=== PATIENT | female | born 1955 | race Caucasian/White ===

== ENCOUNTER 2018-03-20 10:46 | Emergency (ER) | payer BC, OTHER ==
[2018-03-20] MEDS ORDERED: Sodium Chloride 0.9% 1,000 ML IV ONE (10:56)
--- NOTE | 2018-03-20 11:06 | EDM.PDOC ---
ED HPI GENERAL MEDICAL PROBLEM - General Chief Complaint: General Stated Complaint: DIZZY,LIGHT HEADED Time Seen by Provider: 03/20/18 10:46 Source of Information: Reports: Patient History Limitations: Reports: No Limitations - History of Present Illness INITIAL COMMENTS - FREE TEXT/NARRATIVE: 62 YO WF presents to ER by EMS after feeling lightheaded and diaphoretic at work today. Pt states she felt fine this am when she woke and went to work. Pt states she had breakfast without much caffeine consumption and while doing some light work she began to feel "clammy" and lightheaded. Pt denies syncope. Pt states she sat down and rested but continued to feel lightheaded prompting EMS call and transfer to ER. Pt denies any chest pain, shortness of breath, nausea/ vomiting. Pt states she had a recent illness 1 week ago with URI symptoms but states her symptoms resolved 3 days ago and has been feeling fine since. Pt reports 1PPD smoker x 40 years. Pt currently feels "fine", without complaints. Onset: Sudden Onset Date: 03/20/18 Onset Time: 10:00 Location: Reports: Generalized Severity: Mild Improves with: Reports: Rest Worsens with: Reports: Movement Associated Symptoms: Reports: Diaphoresis, Malaise, Weakness. Denies: Confusion , Chest Pain, Cough, cough w sputum, Fever/Chills, Headaches, Loss of Appetite, Nausea/Vomiting, Rash, Seizure, Shortness of Breath, Syncope - Related Data Allergies Allergy/AdvReac Type Severity Reaction Status Date / Time aspirin Allergy Blisters Verified 03/20/18 11:11 morphine Allergy Hypotension Verified 03/20/18 11:11 Home Meds: Home Meds Cephalexin [Keflex] 500 mg PO Q6HR #28 capsule 03/20/18 [Rx] Lisinopril/Hydrochlorothiazide [Lisinopril-Hctz 20-25 mg Tab] 1 tab PO DAILY [History] atorvaSTATin Calcium [Atorvastatin Calcium] 20 mg PO DAILY 03/20/18 [History] buPROPion [Wellbutrin SR] 150 mg PO BID 03/20/18 [History] ED ROS GENERAL - Review of Systems Review Of Systems: See Below Constitutional: Reports: Diaphoresis HEENT: Reports: No Symptoms Respiratory: Reports: No Symptoms Cardiovascular: Reports: Lightheadedness. Denies: Chest Pain, Palpitations, Syncope Endocrine: Reports: No Symptoms GI/Abdominal: Reports: No Symptoms : Reports: No Symptoms Musculoskeletal: Reports: No Symptoms Skin: Reports: No Symptoms Neurological: Reports: Dizziness. Denies: Confusion, Headache, Numbness, Seizure, Syncope, Tingling, Trouble Speaking, Difficulty Walking, Change in Speech, Gait Disturbance Psychiatric: Reports: No Symptoms Hematologic/Lymphatic: Reports: No Symptoms Immunologic: Reports: No Symptoms ED EXAM, DIZZINESS - Physical Exam Exam: See Below Exam Limited By: No Limitations General Appearance: Alert, WD/WN, No Apparent Distress Eye Exam: Bilateral Eye: EOMI, PERRL Ears: Normal External Exam, Normal Canal, Hearing Grossly Normal, Normal TMs Nose: Normal Inspection, Normal Mucosa, No Blood Throat/Mouth: Normal Inspection, Normal Lips, Normal Teeth, Normal Gums, Normal Oropharynx, Normal Voice, No Airway Compromise Head Exam: Atraumatic, Normocephalic Neck: Normal Inspection, Supple, Non-Tender, Full Range of Motion Respiratory/Chest: No Respiratory Distress, Lungs Clear, Normal Breath Sounds, No Accessory Muscle Use, Chest Non-Tender Cardiovascular: Normal Peripheral Pulses, Regular Rate, Rhythm, No Edema, No Gallop, No JVD, No Murmur, No Rub GI/Abdominal: Normal Bowel Sounds, Soft, Non-Tender, No Organomegaly, No Distention, No Abnormal Bruit, No Mass Neurological: Alert, Normal Mood/Affect, Normal Dorsiflexion, CN II-XII Intact, Normal Plantar Flexion, Normal Gait, Normal Reflexes, No Motor/Sensory Deficits , Oriented x 3 Back Exam: Normal Inspection, Full Range of Motion, NT Extremities: Normal Inspection, Normal Range of Motion, Non-Tender, No Pedal Edema, Normal Capillary Refill Psychiatric: Normal Affect, Normal Mood Skin Exam: Warm, Dry, Intact, Normal Color, No Rash EKG INTERPRETATION EKG Date: 03/20/18 Time: 11:13 Rhythm: NSR Rate (Beats/Min): 71 [place]: Normal P-Wave: Present QRS: Normal ST-T: Normal QT: Normal Comparison: NA - No Prior EKG Course - Vital Signs Last Recorded V/S: Last Vital Signs Temp 36.0 C 03/20/18 11:32 Pulse 74 03/20/18 11:32 Resp 18 03/20/18 11:32 BP 95/44 L 03/20/18 11:32 Pulse Ox 96 03/20/18 11:32 Orthostatic Blood Pressure [ 97/56 Standing] Orthostatic Blood Pressure [ 104/69 Sitting] Orthostatic Blood Pressure [ 114/63 Supine] - Orders/Labs/Meds Orders: Active Orders 24 hr Category Date Time Status Cardiac Monitoring [RC] . DIRECTED Care 03/20/18 10:54 Ordered EKG Documentation Completion [RC] ASDIRECTED Care 03/20/18 10:55 Ordered Orthostatic Vital Signs [RC] ASDIRECTED Care 03/20/18 10:54 Ordered Chest 2V [CR] Stat Exams 03/20/18 10:54 Ordered URINALYSIS W/MICROSCOPIC [UA W/MICROSCOPIC] [URIN] Stat Lab 03/20/18 10:54 Ordered EKG 12 Lead [EK] Routine Ther 03/20/18 10:54 Ordered Labs: Laboratory Tests 03/20/18 03/20/18 03/20/18 Range/Units 11:05 11:05 11:25 WBC 4.7 L (5.0-10.0) 10^3/uL RBC 3.60 L (3.80-5.50) 10^6/uL Hgb 12.6 (12.0-16.0) g/dL Hct 38.3 (37.0-47.0) % MCV 106.5 H (82.0-92.0) fL MCH 34.9 H (27.0-31.0) pg MCHC 32.8 (32.0-36.0) g/dL RDW 14.9 H (11.5-14.5) % Plt Count 201 (150-300) 10^3/uL MPV 7.7 (7.4-10.4) fL Neut % (Auto) 67.3 (50.0-70.0) % Lymph % (Auto) 23.5 (20.0-40.0) % [place] % (Auto) 4.7 (2.0-8.0) % Eos % (Auto) 3.9 H (1.0-3.0) % Baso % (Auto) 0.6 (0.0-1.0) % Neut # (Auto) 3.2 (2.5-7.0) 10^3/uL Lymph # (Auto) 1.1 (1.0-4.0) 10^3/uL [place] # (Auto) 0.2 (0.1-0.8) 10^3/uL Eos # (Auto) 0.2 (0.1-0.3) 10^3/uL Baso # (Auto) 0.0 (0.0-0.1) 10^3/uL Sodium 139 (136-145) mmol/L Potassium 4.2 (3.3-5.3) mmol/L Chloride 100 (98-115) mmol/L Carbon Dioxide 25.9 (21.0-32.0) mmol/L BUN 27 H (6-25) mg/dL Creatinine 1.59 H (0.51-1.17) mg/dL Est Cr Clr Drug Dosing 33.01 mL/min Estimated GFR (MDRD) 33 mL/min Glucose 112 H (70-110) mg/dL Calcium 9.0 (8.7-10.3) mg/dL Total Bilirubin 0.5 (0.2-1.0) mg/dL AST 32 (15-37) U/L ALT 29 (12-78) U/L Alkaline Phosphatase 120 H (46-116) IU/L Creatine Kinase 58 (26-276) U/L CK-MB (CK-2) 0.60 (0.00-4.30) ng/mL Troponin I 0.05 (0.00-0.070) ng/mL Total Protein 7.2 (6.4-8.2) g/dL Albumin 3.58 (3.00-4.80) g/dL Specimen Type Urinvoid Urine Color Yellow (YELLOW) Urine Appearance Slightly cloudy H (CLEAR) Urine pH 6.0 (5.0-9.0) Ur Specific [place] 1.020 (1.005-1.030) Urine Protein Negative (NEGATIVE) mg/dL Urine Glucose (UA) Negative (NEGATIVE) mg/dL Urine Ketones 15 H (NEGATIVE) mg/dL Urine Occult Blood Negative (NEGATIVE) Urine Nitrite Negative (NEGATIVE) Urine Bilirubin Small H (NEGATIVE) Urine Urobilinogen 0.2 (0.2-1.0) E.U./dL Ur Leukocyte Esterase Negative (NEGATIVE) Urine RBC 0-5 /HPF Urine WBC 0-5 /HPF Ur Epithelial Cells Many H /LPF Urine Bacteria Moderate H (NONE TO FEW) /HPF Meds: Medications Discontinued Medications Generic Name Dose Route Start Last Admin Trade Name Frank PRN Reason Stop Dose Admin Sodium Chloride 1,000 mls @ 999 mls/hr 03/20/18 10:56 03/20/18 11:28 Normal Saline IV 03/20/18 11:56 999 mls/hr .BOLUS ONE Administration - Radiology Interpretation Free Text/Narrative:: CXR- NAD - Re-Assessments/Exams Free Text/Narrative Re-Assessment/Exam: 03/20/18 11:26 orthostatic BP- positive for hypotension Departure - Departure Time of Disposition: 12:03 Disposition: Home, Self-Care 01 Condition: Good Clinical Impression: UTI, Urinary tract infectious disease, Orthostatic dizziness, Renal insufficiency, mild - Discharge Information Prescriptions: Cephalexin [Keflex] 500 mg PO Q6HR #28 capsule Instructions: Urinary Tract Infection, Adult, Orthostatic Hypotension, Chronic Kidney Disease, Adult, [id number] Referrals: PCP,Not In Area [Primary Care Provider] - Forms: ED Department Discharge - My Orders Last 24 Hours: My Active Orders 03/20/18 10:54 Cardiac Monitoring [RC] . DIRECTED Orthostatic Vital Signs [RC] ASDIRECTED Chest 2V [CR] Stat URINALYSIS W/MICROSCOPIC [UA W/MICROSCOPIC] [URIN] Stat EKG 12 Lead [EK] Routine 03/20/18 10:55 EKG Documentation Completion [RC] ASDIRECTED - Assessment/Plan Last 24 Hours: My Active Orders 03/20/18 10:54 Cardiac Monitoring [RC] . DIRECTED Orthostatic Vital Signs [RC] ASDIRECTED Chest 2V [CR] Stat URINALYSIS W/MICROSCOPIC [UA W/MICROSCOPIC] [URIN] Stat EKG 12 Lead [EK] Routine 03/20/18 10:55 EKG Documentation Completion [RC] ASDIRECTED Assessment:: 1. Dizziness 2. Orthostatic hypotension 3. Urinary tract infection 4. mild renal insufficiency Plan: 1. Discharge home 2. keflex 500mg PO Q6 x 7 days 3. increase PO fluids 4. follow up with PCP regarding renal insufficiency 5. return to ER for worsening symptoms 6. work release for 03/20/2018
== END 2018-03-20 12:35 | disposition home or self-care (01) ==
LOC: KA.ED 10:46
DX: I95.1 Orthostatic hypotension (principal); N39.0 Urinary tract infection, site not specified; N28.9 Disorder of kidney and ureter, unspecified; Z88.6 Allergy status to analgesic agent; Z88.5 Allergy status to narcotic agent; Z79.899 Other long term (current) drug therapy
CPT/HCPCS: 36415; 71046; 80053; 81001; 82550; 82553; 84484; 85025; 93005; 96360; 99285; J7030

== ENCOUNTER 2019-01-01 11:49 | Emergency (ER) | payer BC, OTHER ==
--- NOTE | 2019-01-01 12:13 | EDM.PDOC ---
ED HPI GENERAL MEDICAL PROBLEM - General Chief Complaint: General Stated Complaint: DIZZINESS Time Seen by Provider: 01/01/19 11:57 Source of Information: Reports: Patient History Limitations: Reports: No Limitations - History of Present Illness INITIAL COMMENTS - FREE TEXT/NARRATIVE: Patient is a 63-year-old female who presents to the emergency department with a complaint of lightheadedness. Patient was working at [employer] this morning and at approximately 10 a.m. bent over to pick something up. Upon returning to a standing position. Patient felt lightheaded and needed to hold onto a desk. Patient was able to sit down and symptoms slowly resolved. She decided to be seen by the [facility] nurse. The nurse decided the patient needed to be seen at the emergency department and was therefore transferred here. During the episode , and while presenting to the emergency department, patient denies syncope, chest pain, shortness of breath, diaphoresis, nausea, vomiting, diarrhea, blurry vision, headache, or fever. Patient had 2 similar episodes, once in February and once in September 2018. On both occasions there were no correlating specific diagnosis as to symptomology. Patient states that she has not had any other episodes other than documented ER visits. Patient admits to taking blood pressure medicine lisinopril 20/ HCTZ 25 first thing in the morning, does have breakfast daily, and drank 3-12 ounce bottles of water this morning. There is no extensive manual labor in job performance, and patient states she has not felt ill lately. Onset: Today Onset Date: 01/01/19 Onset Time: 10:00 Duration: Minutes: Location: Reports: Head Quality: Reports: Other (Lightheaded) Improves with: Reports: None Worsens with: Reports: None Context: Reports: Other (After bending over) Associated Symptoms: Denies: Chest Pain, Fever/Chills, Headaches, Nausea/ Vomiting, Shortness of Breath, Syncope - Related Data Allergies Allergy/AdvReac Type Severity Reaction Status Date / Time aspirin Allergy Blisters Verified 10/03/18 08:52 morphine Allergy Hypotension Verified 10/03/18 08:52 Home Meds: Home Meds Lisinopril/Hydrochlorothiazide [Lisinopril-Hctz 20-25 mg Tab] 1 tab PO DAILY [History] atorvaSTATin Calcium [Atorvastatin Calcium] 20 mg PO DAILY 03/20/18 [History] Past Medical History HEENT History: Reports: Impaired Vision Cardiovascular History: Reports: High Cholesterol, Hypertension 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 Constitutional: Reports: No Symptoms HEENT: Reports: No Symptoms Respiratory: Reports: No Symptoms Cardiovascular: Reports: No Symptoms Endocrine: Reports: No Symptoms GI/Abdominal: Reports: No Symptoms : Reports: No Symptoms Musculoskeletal: Reports: No Symptoms Skin: Reports: No Symptoms Neurological: Reports: Dizziness. Denies: Headache, Numbness, Paresthesia, Syncope, Trouble Speaking, Difficulty Walking, Change in Speech Psychiatric: Reports: No Symptoms Hematologic/Lymphatic: Reports: No Symptoms Immunologic: Reports: No Symptoms ED EXAM, DIZZINESS - Physical Exam Exam: See Below Exam Limited By: No Limitations General Appearance: Alert, WD/WN, No Apparent Distress Eye Exam: Bilateral Eye: Normal Inspection Nystagmus: No: reproducible Ears: Normal External Exam, Normal Canal, Normal TMs Nose: Normal Inspection, Normal Mucosa, No Blood Throat/Mouth: Normal Inspection, Normal Oropharynx, No Airway Compromise Head Exam: Atraumatic, Normocephalic Vertigo: No: reproducible Neck: Normal Inspection, Supple, Non-Tender, Full Range of Motion Respiratory/Chest: No Respiratory Distress, Lungs Clear, Normal Breath Sounds, No Accessory Muscle Use, Chest Non-Tender Cardiovascular: Normal Peripheral Pulses, Regular Rate, Rhythm, No Murmur GI/Abdominal: Normal Bowel Sounds, Soft, Non-Tender, No Organomegaly, No Distention, No Abnormal Bruit, No Mass Neurological: Alert, Normal Mood/Affect, CN II-XII Intact, No Motor/Sensory Deficits, Oriented x 3 Back Exam: Normal Inspection Extremities: Normal Inspection, No Pedal Edema Psychiatric: Normal Affect, Normal Mood Skin Exam: Warm, Dry, Intact, Normal Color, No Rash EKG INTERPRETATION EKG Date: 01/01/19 Time: 12:15 Rhythm: NSR Rate (Beats/Min): 73 [place]: Normal P-Wave: Present QRS: Normal ST-T: Normal QT: Normal Comparison: No Change Course - Orders/Labs/Meds Orders: Active Orders 24 hr Category Date Time Status EKG Documentation Completion [RC] ASDIRECTED Care 01/01/19 11:58 Ordered EKG 12 Lead [EK] Routine Ther 01/01/19 11:58 Ordered - Re-Assessments/Exams Free Text/Narrative Re-Assessment/Exam: 01/01/19 12:41 Patient is afebrile, orthostatic vital signs within normal limits, patient appears nontoxic and no lightheadedness sensation. Patient has an appointment tomorrow morning with her PCP. Departure - Departure Time of Disposition: 12:43 Disposition: Home, Self-Care 01 Condition: Good Clinical Impression: Episodic lightheadedness - Discharge Information Instructions: Dizziness, [id number] Forms: ED Department Discharge Additional Instructions: Follow-up as scheduled tomorrow with your PCP. Return to emergency department sooner if symptoms continue or worsen. Always make sure to be careful upon rising from seated position or from bending over - My Orders Last 24 Hours: My Active Orders 01/01/19 11:58 EKG Documentation Completion [RC] ASDIRECTED EKG 12 Lead [EK] Routine - Assessment/Plan Last 24 Hours: My Active Orders 01/01/19 11:58 EKG Documentation Completion [RC] ASDIRECTED EKG 12 Lead [EK] Routine Assessment:: Lightheadedness Plan: Follow-up as scheduled tomorrow with PCP
== END 2019-01-01 13:00 | disposition home or self-care (01) ==
LOC: KA.ED 11:49
DX: R42 Dizziness and giddiness (principal); E78.00 Pure hypercholesterolemia, unspecified; I10 Essential (primary) hypertension; Z79.899 Other long term (current) drug therapy
CPT/HCPCS: 93005; 99284